=== PATIENT | female | born 1955 | race American Indian/Alaskan Native ===

== ENCOUNTER 2016-07-05 08:08 | Outpatient (CLI) | payer OTHER ==
[~2016-07-05 08:08] MED LIST: PROVENTIL IH ONE
== END 2016-07-05 08:09 | disposition home or self-care (01) ==
LOC: PF 08:08
PROVIDERS: ATTEND Internal Medicine
DX: E11.9 Type 2 diabetes mellitus without complications (principal); R56.9 Unspecified convulsions; G62.9 Polyneuropathy, unspecified; H54.7 Unspecified visual loss
CPT/HCPCS: 94060; 94640

== ENCOUNTER 2017-05-07 14:06 | Emergency (ER) | payer SELFPAY ==
[2017-05-07] MEDS ORDERED: NACL 0.9% 1000 ML 1,000 ML IV ONE (14:23)
[2017-05-07] MEDS ORDERED: ZOFRAN IV ONE (14:23)
[2017-05-07] MEDS ORDERED: MORPHINE IV ONE (14:23)
[2017-05-07] MEDS ORDERED: ZOFRAN ONE (14:26)
[2017-05-07] MEDS ORDERED: NACL 0.9% 1000 ML 1,000 ML ONE (14:27)
[2017-05-07] MEDS ORDERED: TYLENOL ONE (14:27)
[2017-05-07] MEDS ORDERED: MORPHINE ONE (14:28)
--- NOTE | 2017-05-07 14:29 | Emergency Department Report ---
ED Abdominal Pain HPI - General Stated Complaint: NAUSEA/EMESIS Time Seen by Provider: 05/07/17 14:19 - History of Present Illness Initial Comments: Patient is 62 years old female history of diabetes and hypertension. Presented to the ER with 1 day history of abdominal pain, diffuse, crampy in nature and associated with nausea vomiting and fever. No diarrhea. She denied any urinary symptoms. MD Complaint: abdominal pain -: This morning Location: diffuse Radiation: none Migration to: no migration Severity scale (0 -10): 6 Quality: cramping Associated Symptoms: nausea, vomiting, chills - Related Data Home Medications Medication Instructions Recorded Confirmed Last Taken No Known Home Medications [No 05/07/17 05/07/17 Unknown Reported Home Medications] Allergies Allergy/AdvReac Type Severity Reaction Status Date / Time ibuprofen [From Motrin] Allergy Itching Verified 02/03/16 20:11 ED Review of Systems ROS: Stated complaint: NAUSEA/EMESIS Other details as noted in HPI Comment: All other systems reviewed and negative Constitutional: chills, fever Respiratory: cough. denies: orthopnea, shortness of breath, SOB with exertion Cardiovascular: palpitations. denies: chest pain, dyspnea on exertion, orthopnea Gastrointestinal: abdominal pain, nausea, vomiting. denies: diarrhea, constipation, hematemesis, melena, hematochezia Genitourinary: denies: urgency, dysuria, frequency Skin: denies: rash Neurological: denies: headache, weakness, numbness, paresthesias ED Past Medical Hx - Past Medical History Hx Hypertension: Yes Hx Diabetes: Yes Additional medical history: ulcers? - Social History Smoking Status: Current Every Day Smoker Substance Use Type: None - Medications Home Medications: Home Medications Medication Instructions Recorded Confirmed Last Taken Type No Known Home Medications [No 05/07/17 05/07/17 Unknown History Reported Home Medications] ED Physical Exam - General General appearance: alert, in no apparent distress - Head Head exam: Present: atraumatic, normocephalic, normal inspection - Eye Eye exam: Present: normal appearance, PERRL - ENT ENT exam: Present: normal exam, normal orophraynx, mucous membranes moist - Neck Neck exam: Present: normal inspection, full ROM. Absent: tenderness, meningismus, lymphadenopathy - Respiratory Respiratory exam: Present: normal lung sounds bilaterally. Absent: respiratory distress, wheezes, rales, rhonchi, chest wall tenderness, accessory muscle use, decreased breath sounds, prolonged expiratory - Cardiovascular Cardiovascular Exam: Present: tachycardia, normal heart sounds - GI/Abdominal GI/Abdominal exam: Present: soft, tenderness (diffuse tenderness), normal bowel sounds. Absent: distended, guarding, rebound, rigid, organomegaly, mass, bruit , pulsatile mass, hernia - Extremities Exam Extremities exam: Present: normal inspection, full ROM, normal capillary refill - Back Exam Back exam: Present: normal inspection, full ROM. Absent: tenderness, CVA tenderness (R), CVA tenderness (L), muscle spasm, paraspinal tenderness, vertebral tenderness, rash noted - Neurological Exam Neurological exam: Present: alert, oriented X3, CN II-XII intact, normal gait - Skin Skin exam: Present: warm, intact, normal color. Absent: cyanosis, diaphoretic, erythema ED Course Vital Signs 05/07/17 05/07/17 14:57 15:01 Temperature 102.1 F H Pulse Rate 119 H Respiratory 20 22 Rate Blood Pressure 185/103 O2 Sat by Pulse 95 Oximetry - Reevaluation(s) Reevaluation #1: 05/07/17 17:15: Patient is still complaining of abdominal pain but no more vomiting. Fentanyl 50mcg prescribed. Reevaluation #2: 05/07/17 18:15 Patient stated that she is feeling much better. Her pain completely resolved. No nausea no vomiting. ED Medical Decision Making - Lab Data Result diagrams: 05/07/17 14:31 05/07/17 14:31 - Radiology Data Radiology results: report reviewed Referring Physician: TAI LUDWIG Patient Name: LICHA ENGLAND Date of : 1955 Sex: Female Report Date: 2017-05-07 Report Status: Finalized Findings [facility] [address] [place] [address] Cat Scan Report Signed Patient: LICHA ENGLAND MR#: [id number] : 1955 Acct:[id number] Age/Sex: 62 / F ADM Date: 05/07/17 Loc: ED Attending Dr: Ordering Physician: TAI LUDWIG Date of Service: 05/07/17 Procedure(s): CT abdomen pelvis w con Accession Number(s): [id number] cc: TAI LUDWIG FINAL REPORT PROCEDURE: CT ABDOMEN PELVIS W CON TECHNIQUE: Computerized axial tomography of the abdomen and pelvis was performed after the IV injection of iodinated nonionic contrast. HISTORY: abdominal pain, FEVER COMPARISON: No prior studies are available for comparison. FINDINGS: Visualized lower thorax: There is a small amount of pericardial fluid present, measuring 8 millimeters in thickness. Liver: Normal size and attenuation. Spleen: Normal size and attenuation. Gallbladder and biliary system: Normal. Pancreas: Normal. Adrenals: Normal. Kidneys: 2 centimeter right renal cyst is present. No hydronephrosis. GI tract: The appendix is visualized and is not inflamed. No bowel obstruction or acute inflammation is seen. Lymph nodes and mesentery: Normal. Vasculature: There is atherosclerotic calcification of the aorta and bilateral common iliac arteries. Bladder: The bladder is not fully distended, however there may be bladder wall thickening. Reproductive organs: Grossly unremarkable. Peritoneum: No free fluid. Musculoskeletal structures: There are lumbar spine degenerative disc and facet arthritic changes. Other: None. IMPRESSION: No acute inflammatory process is identified. Small pericardial effusion is seen as described above The urinary bladder is not fully distended, however there may be mild wall thickening. Correlate for possible cystitis Transcribed By: [facility] Dictated By: CRISTIAN VALDES M.D. Electronically Authenticated By: CRISTIAN VLADES M.D. Signed Date/Time: 05/07/17 1240 DD/ 1240 TD/TT: 05/07/17 1240 Critical care attestation.: If time is entered above; I have spent that time in minutes in the direct care of this critically ill patient, excluding procedure time. ED Disposition Clinical Impression: Abdominal pain, Fever, Cystitis, Hyperglycemia Disposition: -01 TO HOME OR SELFCARE Is pt being admited?: No Condition: Stable Instructions: Abdominal Pain (ED), Diabetic Hyperglycemia (ED), Urinary Tract Infection in Women (ED) Referrals: PRIMARY CARE, [Referring] - 3-5 Days
[2017-05-07 14:57] LABS: Bilirubin,Urine NEG (Negative); Blood,Urine SM (Negative); Color,Urine Yellow (Yellow); Mucus,Urine FEW /HPF; Nitrite,Urine NEG (Negative); Protein,Urine <15 mg/dL mg/dL (Negative); Urobilinogen,Urine < 2.0 mg/dL (<2.0)
[2017-05-07 15:04] LABS: Basophils % (Auto) 0.9 % (0.0-1.8); Eosinophils % (Auto) 0.4 % (0.0-4.3); Hemoglobin 14.4 gm/dl (10.1-14.3); Lymphocytes # (Auto) 0.3 K/mm3 (1.2-5.4); Lymphocytes % (Auto) 5.6 % (13.4-35.0); Mean Corpuscular HGB Conc 32 % (30-34); Mean Corpuscular Hemoglobin 25 pg (28-32); Mean Corpuscular Volume 78 fl (79-97); Monocytes # (Auto) 0.4 K/mm3 (0.0-0.8); Platelet Count 234 K/mm3 (140-440); Red Blood Count 5.79 M/mm3 (3.65-5.03); Red Cell Distribution Width 16.1 % (13.2-15.2)
[2017-05-07 15:20] LABS: Alanine Aminotransferase 11 units/L (7-56); Albumin 2.4 g/dL (3.9-5); BUN/Creatinine Ratio 15; Blood Urea Nitrogen 12 mg/dL (7-17); Calcium 8.4 mg/dL (8.4-10.2); Hemolysis Index 28; Lipase 8 units/L (13-60)
[2017-05-07 15:21] LABS: Bilirubin,Direct < 0.2 mg/dL (0-0.2)
--- NOTE | 2017-05-07 16:43 | Cat Scan Report ---
FINAL REPORT PROCEDURE: CT ABDOMEN PELVIS W CON TECHNIQUE: Computerized axial tomography of the abdomen and pelvis was performed after the IV injection of iodinated nonionic contrast. HISTORY: abdominal pain, FEVER COMPARISON: No prior studies are available for comparison. FINDINGS: Visualized lower thorax: There is a small amount of pericardial fluid present, measuring 8 millimeters in thickness. Liver: Normal size and attenuation. Spleen: Normal size and attenuation. Gallbladder and biliary system: Normal. Pancreas: Normal. Adrenals: Normal. Kidneys: 2 centimeter right renal cyst is present. No hydronephrosis. GI tract: The appendix is visualized and is not inflamed. No bowel obstruction or acute inflammation is seen. Lymph nodes and mesentery: Normal. Vasculature: There is atherosclerotic calcification of the aorta and bilateral common iliac arteries. Bladder: The bladder is not fully distended, however there may be bladder wall thickening. Reproductive organs: Grossly unremarkable. Peritoneum: No free fluid. Musculoskeletal structures: There are lumbar spine degenerative disc and facet arthritic changes. Other: None. IMPRESSION: No acute inflammatory process is identified. Small pericardial effusion is seen as described above The urinary bladder is not fully distended, however there may be mild wall thickening. Correlate for possible cystitis
[2017-05-07] MEDS ORDERED: SUBLIMAZE IV ONE (17:08)
[2017-05-07] MEDS ORDERED: ZOSYN/NS 3.375GM/50ML 3.375 GM/50 ML BAG IV SCH (18:30)
[2017-05-07 19:35] VITALS: BP 124/75
== END 2017-05-07 19:41 | disposition home or self-care (01) ==
LOC: ED 14:06
DX: N30.90 Cystitis, unspecified without hematuria (principal); E11.65 Type 2 diabetes mellitus with hyperglycemia; R10.84 Generalized abdominal pain; R50.9 Fever, unspecified; I10 Essential (primary) hypertension; F17.200 Nicotine dependence, unspecified, uncomplicated
CPT/HCPCS: 36415; 74177; 80048; 80074; 81001; 82962; 83690; 85025; 87040; 96361; 96365; 96375; 99284; J2270; J2405; J3010; J7030; Q9967; J1815; J2543

== ENCOUNTER 2017-07-30 07:57 | Inpatient (IN) | payer OTHER ==
[2017-07-30 08:44] LABS: Basophils % (Auto) 0.6 % (0.0-1.8); Eosinophils # (Auto) 0.1 K/mm3 (0.0-0.4); Eosinophils % (Auto) 1.2 % (0.0-4.3); Hematocrit 32.6 % (30.3-42.9); Hemoglobin 10.3 gm/dl (10.1-14.3); Lymphocytes # (Auto) 1.6 K/mm3 (1.2-5.4); Lymphocytes % (Auto) 22.8 % (13.4-35.0); Mean Corpuscular HGB Conc 32 % (30-34); Mean Corpuscular Volume 76 fl (79-97); Monocytes # (Auto) 0.4 K/mm3 (0.0-0.8); Monocytes % (Auto) 5.9 % (0.0-7.3); Platelet Count 525 K/mm3 (140-440); Red Blood Count 4.27 M/mm3 (3.65-5.03); Red Cell Distribution Width 15.7 % (13.2-15.2)
[2017-07-30 08:45] LABS: Mean Corpuscular Hemoglobin 24 pg (28-32)
[2017-07-30 08:55] LABS: BUN/Creatinine Ratio 20; Blood Urea Nitrogen 12 mg/dL (7-17); Calcium 8.6 mg/dL (8.4-10.2); Hemolysis Index 18
--- NOTE | 2017-07-30 09:30 | XRay Report ---
CHEST TWO VIEWS: 07/30/17 09:06 CLINICAL: Shortness of breath. COMPARISON: none FINDINGS: Mild cardiomegaly and central vascular congestion with redistribution of pulmonary blood flow to the upper lobes. Mild bibasal and right upper lobe reticular interstitial opacities. Patchy opacity at the right costophrenic angle and blunting of both costophrenic angles. No tubes or lines. IMPRESSION: CHF with mild interstitial pulmonary edema. Suspect tiny right pleural effusion.
[2017-07-30] MEDS ORDERED: LASIX IV ONE ×2 (09:49→14:00)
--- NOTE | 2017-07-30 12:13 | Emergency Department Report ---
ED Shortness of Breath HPI - General Chief Complaint: Dyspnea/Respdistress Stated Complaint: RL Time Seen by Provider: 07/30/17 09:20 Source: patient, EMS Mode of arrival: Stretcher Limitations: No Limitations - History of Present Illness Initial Comments: Mrs. Brock is a 62-year-old female with history of hypertension diabetes who presents with 1 month of shortness of breath with nonproductive cough. She states she has had wheezing. She denied fever. She has chills and body aches. Feels like previous episode pneumonia. She was given albuterol solu-medrol per EMS. Patient was hypoxic per EMS I percent on room air. The patient does smoke tobacco. She stated that she possibly had a slight heart attack years ago. No history of cardiac intervention. She denies leg pain. She denies back pain. She has chest tightness as if she cannot get in a deep breath. She does not use bronchodilator therapy. However she is using her grandson's nebulizer daily. MD Complaint: shortness of breath, cough -: week(s) (1) Severity: moderate Known History Of: recurrent pnemonia - Related Data Previous Rx's Medication Instructions Recorded Last Taken Type Ciprofloxacin HCl [Ciprofloxacin 500 mg PO Q12H #14 tab 05/07/17 Unknown Rx TAB] HYDROcodone/APAP 5-325 [[place] 1 each PO Q6HR PRN #14 tablet 05/07/17 Unknown Rx 5/325] Ondansetron [Zofran Odt] 4 mg PO Q8HR PRN #14 tab.rapdis 05/07/17 Unknown Rx Allergies Allergy/AdvReac Type Severity Reaction Status Date / Time ibuprofen [From Motrin] Allergy Itching Verified 02/03/16 20:11 ED Review of Systems ROS: Stated complaint: RL Other details as noted in HPI Comment: All other systems reviewed and negative Constitutional: chills, fever, malaise Respiratory: cough ED Past Medical Hx - Past Medical History Previous Medical History?: Yes Hx Hypertension: Yes Hx Heart Attack/AMI: Yes Hx Diabetes: Yes Additional medical history: ulcers? - Surgical History Past Surgical History?: Yes Additional Surgical History: tubal ligation - Social History Smoking Status: Former Smoker Substance Use Type: None - Medications Home Medications: Home Medications Medication Instructions Recorded Confirmed Last Taken Type Ciprofloxacin HCl [Ciprofloxacin 500 mg PO Q12H #14 tab 05/07/17 Unknown Rx TAB] HYDROcodone/APAP 5-325 [[place] 1 each PO Q6HR PRN #14 tablet 05/07/17 Unknown Rx 5/325] Ondansetron [Zofran Odt] 4 mg PO Q8HR PRN #14 tab.rapdis 05/07/17 Unknown Rx ED Physical Exam - General Limitations: No Limitations General appearance: alert, other (mild respiratory distress speaking full sentences) - Head Head exam: Present: atraumatic, normocephalic - Eye Eye exam: Present: normal appearance - ENT ENT exam: Present: normal orophraynx, mucous membranes moist - Neck Neck exam: Present: normal inspection - Respiratory Respiratory exam: Present: respiratory distress, rales, rhonchi, other ( decreased breath sounds) - Cardiovascular Cardiovascular Exam: Present: normal rhythm, tachycardia, normal heart sounds. Absent: systolic murmur, diastolic murmur, rubs, gallop - GI/Abdominal GI/Abdominal exam: Present: soft, normal bowel sounds. Absent: distended, tenderness, guarding, rebound - Extremities Exam Extremities exam: Present: normal inspection - Back Exam Back exam: Present: normal inspection - Neurological Exam Neurological exam: Present: alert, oriented X3 - Psychiatric Psychiatric exam: Present: normal affect, normal mood - Skin Skin exam: Present: warm, dry, intact, normal color. Absent: rash ED Course Vital Signs 07/30/17 07/30/17 07/30/17 08:09 08:16 08:17 Temperature 98.9 F Pulse Rate 111 H Respiratory 18 Rate Blood Pressure 180/97 180/97 O2 Sat by Pulse 94 90 93 Oximetry 07/30/17 07/30/17 07/30/17 08:48 09:00 09:16 Temperature Pulse Rate 109 H 104 H 101 H Respiratory 23 13 24 Rate Blood Pressure 180/97 172/100 172/100 O2 Sat by Pulse 93 92 88 Oximetry 07/30/17 07/30/17 07/30/17 09:30 09:46 10:00 Temperature Pulse Rate 100 H 99 H 98 H Respiratory 21 19 23 Rate Blood Pressure 172/100 172/100 162/88 O2 Sat by Pulse 83 L 89 87 Oximetry 07/30/17 07/30/17 07/30/17 10:16 10:30 10:46 Temperature Pulse Rate 107 H 98 H 105 H Respiratory 22 21 18 Rate Blood Pressure 162/88 162/88 162/88 O2 Sat by Pulse 87 85 86 Oximetry ED Medical Decision Making - Lab Data Result diagrams: 07/30/17 08:26 07/30/17 08:26 Laboratory Results - last 24 hr 07/30/17 07/30/17 07/30/17 08:26 08:26 08:26 WBC 6.9 RBC 4.27 Hgb 10.3 Hct 32.6 MCV 76 L MCH 24 L MCHC 32 RDW 15.7 H Plt Count 525 H Lymph % (Auto) 22.8 [place] % (Auto) 5.9 Eos % (Auto) 1.2 Baso % (Auto) 0.6 Lymph # 1.6 [place] # 0.4 Eos # 0.1 Baso # 0.0 Seg Neutrophils % 69.5 Seg Neutrophils # 4.8 Sodium 148 H Potassium 4.2 Chloride 105.2 Carbon Dioxide 31 H Anion Gap 16 BUN 12 Creatinine 0.6 L Estimated GFR > 60 BUN/Creatinine Ratio 20 Glucose 132 H Calcium 8.6 Troponin T < 0.010 NT-Pro-B Natriuret Pep 3835 H Vital Signs - 24 hr 07/30/17 07/30/17 07/30/17 08:09 08:16 08:17 Temperature 98.9 F Pulse Rate 111 H Respiratory 18 Rate Blood Pressure 180/97 180/97 O2 Sat by Pulse 94 90 93 Oximetry 07/30/17 07/30/17 07/30/17 08:48 09:00 09:16 Temperature Pulse Rate 109 H 104 H 101 H Respiratory 23 13 24 Rate Blood Pressure 180/97 172/100 172/100 O2 Sat by Pulse 93 92 88 Oximetry 07/30/17 07/30/17 07/30/17 09:30 09:46 10:00 Temperature Pulse Rate 100 H 99 H 98 H Respiratory 21 19 23 Rate Blood Pressure 172/100 172/100 162/88 O2 Sat by Pulse 83 L 89 87 Oximetry 07/30/17 07/30/17 07/30/17 10:16 10:30 10:46 Temperature Pulse Rate 107 H 98 H 105 H Respiratory 22 21 18 Rate Blood Pressure 162/88 162/88 162/88 O2 Sat by Pulse 87 85 86 Oximetry - Radiology Data Radiology results: report reviewed - Medical Decision Making Mrs. brock presents with acute respiratory failure. Evidence of new onset CHF with pulmonary edema on x-ray and elevated BNP. A likely component of bronchospasm with tobacco abuse history. Admitted to the hospital service for further evaluation. IV furosemide initiated in the ED. Critical care attestation.: If time is entered above; I have spent that time in minutes in the direct care of this critically ill patient, excluding procedure time. ED Disposition Clinical Impression: Acute respiratory failure with hypoxia, CHF (congestive heart failure) Disposition: OP ADMIT IP TO THIS HOSP Is pt being admited?: Yes Does the pt Need Aspirin: No Condition: Stable Time of Disposition: 12:16
--- NOTE | 2017-07-30 12:39 | History and Physical Report ---
History of Present Illness Chief complaint: Im short of breath History of present illness: 62 YO Female with HTN, DM, MA, PUD, Nicotine Dependence, Medication Noncompliance presents to ED for evaluation. Pt states that she has experienced shortness of breath for the past 1 month, with worsening symptoms over the past week. Pt acknowledges decreased exercise tolerance, Orthopnea/PND. Pt denies fever, chills, CP, Palpitations, NVD, Syncope, BRBPR, Productive cough, prolonged travel/immobility, individual/family history of DVT/PE, calf pain, trauma, or recent ill contacts. Pt seen and evaluated in ED and found to have Acute CHF with concomitant Acute Hypoxemic respiratory failure. Pt desaturates to an oxygen saturation of 82-86% on room air even after diuretic therapy. Pt admitted to telemetry. Past History Past Medical History: acute MA, diabetes, hypertension, other (PUD, ) Past Surgical History: Other (Tubal ligation. ) Social history: , smoking. denies: alcohol abuse, prescription drug abuse Family history: diabetes, hypertension Medications and Allergies Allergies Allergy/AdvReac Type Severity Reaction Status Date / Time ibuprofen [From Motrin] Allergy Itching Verified 02/03/16 20:11 Home Medications Medication Instructions Recorded Confirmed Last Taken Type Ciprofloxacin HCl [Ciprofloxacin 500 mg PO Q12H #14 tab 05/07/17 Unknown Rx TAB] HYDROcodone/APAP 5-325 [[place] 1 each PO Q6HR PRN #14 tablet 05/07/17 Unknown Rx 5/325] Ondansetron [Zofran Odt] 4 mg PO Q8HR PRN #14 tab.rapdis 05/07/17 Unknown Rx Furosemide [Lasix] 20 mg PO QDAY #30 tablet 07/30/17 Unknown Rx Lisinopril 20 mg PO DAILY #30 tablet 07/30/17 Unknown Rx Metoprolol [Lopressor TAB] 25 mg PO BID #60 tablet 07/30/17 Unknown Rx Review of Systems Constitutional: no weight loss, no weight gain, no fever, no chills Ears, nose, mouth and throat: no ear pain, no ear discharge, no tinnitis, no decreased hearing, no nose pain, no nasal congestion Cardiovascular: orthopnea, shortness of breath, paroxysmal nocturnal dyspnea, decreased exercise tolerance, no chest pain, no palpitations, no rapid/ irregular heart beat, no syncope Respiratory: no cough, no cough with sputum, no excessive sputum Gastrointestinal: no nausea, no vomiting, no diarrhea, no constipation Genitourinary Female: no pelvic pain, no flank pain, no menorrhagia, no dysuria , no urinary frequency, no urgency Rectal: no pain, no incontinence, no bleeding Musculoskeletal: no neck stiffness, no neck pain, no shooting arm pain, no arm numbness/tingling, no low back pain, no shooting leg pain, no leg numbness/ tingling Integumentary: no rash, no pruritis, no redness, no sores, no wounds, no jaundice, no boils Neurological: no transient paralysis, no paralysis, no weakness, no parathesias , no numbness, no tingling, no seizures, no syncope, no tremors Psychiatric: no anxiety, no memory loss, no change in sleep habits, no sleep disturbances, no insomnia, no hypersomnia, no change in appetite, no change in libido, no suicidal ideation Endocrine: no cold intolerance, no heat intolerance, no polyphagia, no excessive thirst, no polydipsia, no polyuria, no nocturia, no excessive sweating Hematologic/Lymphatic: no easy bruising, no lymphadenopathy, no lymphedema Allergic/Immunologic: no urticaria, no allergic rhinitis, no wheezing, no persistent infections, no anaphylaxis Exam - Constitutional Vitals: Temp Pulse Resp BP Pulse Ox 98.9 F 105 H 18 162/88 86 07/30/17 08:17 07/30/17 10:46 07/30/17 10:46 07/30/17 10:46 07/30/17 10:46 General appearance: Present: mild distress - EENT Eyes: Present: PERRL ENT: hearing intact, clear oral mucosa - Neck Neck: Present: supple, normal ROM - Respiratory Respiratory effort: normal Respiratory: bilateral: rhonchi - Cardiovascular Heart Sounds: Present: S1 & S2. Absent: rub, click - Extremities Extremities: pulses symmetrical, No edema Extremity abnormal: edema Peripheral Pulses: within normal limits - Abdominal General gastrointestinal: Present: soft, non-tender, non-distended, normal bowel sounds Female genitourinary: Present: normal - Integumentary Integumentary: Present: clear, warm, dry - Musculoskeletal Musculoskeletal: generalized weakness - Psychiatric Psychiatric: appropriate mood/affect, intact judgment & insight - Neurologic Neurologic: CNII-XII intact, moves all extremities Results - Labs CBC & Chem 7: 07/30/17 08:26 07/30/17 08:26 Labs: Abnormal lab results 07/30/17 07/30/17 07/30/17 Range/Units 08:26 08:26 08:26 MCV 76 L (79-97) fl MCH 24 L (28-32) pg RDW 15.7 H (13.2-15.2) % Plt Count 525 H (140-440) K/mm3 Sodium 148 H (137-145) mmol/L Carbon Dioxide 31 H (22-30) mmol/L Creatinine 0.6 L (0.7-1.2) mg/dL Glucose 132 H (65-100) mg/dL NT-Pro-B Natriuret Pep 3835 H (0-900) pg/mL Assessment and Plan - Patient Problems (1) CHF (congestive heart failure) Current Visit: Yes Status: Acute Qualifiers: Heart failure type: systolic Heart failure chronicity: acute Qualified Code(s): I50.21 - Acute systolic (congestive) heart failure Plan to address problem: Admit to telemetry, Echo, Strict I/O, Afterload reduction, B tram therapy, diuresis, monitor uop q shift, daily weight, 2 gram sodium diet, Pt counseled regarding medication noncompliance. Pt acknowledges understanding instructions. (2) Acute respiratory failure with hypoxia Current Visit: Yes Status: Acute Plan to address problem: Supplemental oxygen, nebulizer therapy, incentive spirometry, early ambulation, NIPPV an clinically indicated, home oxygen evaluation in AM. (3) Metabolic acidosis Current Visit: Yes Status: Acute Plan to address problem: repeat bmp, suportive care. (4) Diabetes Current Visit: Yes Status: Acute Plan to address problem: consistent carbohydrate diet, insulin accu check, HGb a1c (5) HTN (hypertension) Current Visit: Yes Status: Acute Qualifiers: Hypertension type: essential hypertension Qualified Code(s): I10 - Essential (primary) hypertension Plan to address problem: monitor bp q shift, continue current therapy.. (6) DVT prophylaxis Current Visit: Yes Status: Acute
--- NOTE | 2017-07-30 13:18 | Cat Scan Report ---
CT CHEST WITH CONTRAST: 07/30/17 CLINICAL: Dyspnea. TECHNIQUE: PE protocol with volumetric acquisition and 1.25 mm scan reconstructions after the uneventful intravenous injection of 100 cc Omnipaque 350. Consent was obtained prior to the administration of contrast. FINDINGS: Good opacification of the pulmonary arteries and no pulmonary artery thrombus identified. Mild cardiomegaly and mild coronary artery calcifications. Mild bilateral lower lobe subsegmental atelectasis and small bilateral pleural effusions. Normal thyroid, trachea and esophagus. The upper abdomen is unremarkable for a benign 2.4 cm right renal cyst.. The bones and soft tissues are normal. IMPRESSION: No pulmonary embolus. Small bilateral pleural effusions. No pneumonia.
[2017-07-30] MEDS ORDERED: LOPRESSOR PO ONE (14:00)
[2017-07-30] MEDS ORDERED: ZESTRIL PO ONE (14:00)
[2017-07-30] MEDS ORDERED: APRESOLINE IV ONE ×2 (17:00→17:25)
[2017-07-30] MEDS ORDERED: HumuLIN R IV ONE (18:09)
[2017-07-30] MEDS ORDERED: D50W (25GM) Syringe IV PRN ×2 (20:19→20:22)
[2017-07-30] MEDS ORDERED: TYLENOL PO PRN (20:19)
[2017-07-30] MEDS ORDERED: PROVENTIL IH PRN (20:19)
[2017-07-30] MEDS ORDERED: SODIUM CHLORIDE FLUSH SYRINGE 10 ML IV PRN (20:19)
[2017-07-30] MEDS ORDERED: ZOFRAN IV PRN (20:19)
[2017-07-30 21:43] LABS: Chol/HDL Ratio 3.1 %
[2017-07-31] MEDS: PERCOCET 5/325 PO PRN ×3 (00:25→22:49)
[2017-07-31] MEDS: LOPRESSOR PO SCH ×3 (00:25→22:40)
[2017-07-31] MEDS: NEURONTIN PO SCH ×4 (00:25→23:40)
[2017-07-31] MEDS: HumuLIN R SUB-Q SCH ×6 (00:33→22:42)
[2017-07-31] MEDS: LASIX IV SCH ×2 (06:55→18:48)
[2017-07-31] MEDS: SODIUM CHLORIDE FLUSH SYRINGE 10 ML IV SCH ×3 (07:28→22:41)
[2017-07-31] MEDS: ZESTRIL PO SCH (09:25)
[2017-07-31] MEDS: HALFPRIN EC PO SCH (12:52)
--- NOTE | 2017-07-31 13:18 | Progress Note ---
Assessment and Plan / Acute CHF (congestive heart failure) exacerbation monitor at telemetry, follow Echo, Strict I/O, Afterload reduction, B tram therapy, diuresis, monitor uop q shift, daily weight, 2 gram sodium diet, Pt counseled regarding medication noncompliance. Pt acknowledges understanding instructions. /Acute respiratory failure with hypoxia Current Visit: Yes Status: Acute Plan to address problem: Supplemental oxygen, nebulizer therapy, incentive spirometry, early ambulation, NIPPV an clinically indicated, likely from CHF exacerbation / Diabetes type 2 on insulin consistent carbohydrate diet, insulin accu check, HGb a1c 13.3 / HTN (hypertension) monitor bp q shift, continue current therapy.. / DVT prophylaxis lovenox Brief history: 62 YO Female with HTN, DM, [place], PUD, Nicotine Dependence, Medication Noncompliance presents to ED for shortness of breath for the past 1 month, with worsening symptoms over the past week. Pt seen and evaluated in ED and found to have Acute CHF with concomitant Acute Hypoxemic respiratory failure. Pt desaturated to an oxygen saturation of 82-86% on room air even after diuretic therapy. Pt admitted to telemetry. Subjective Date of service: 07/31/17 Interval history: Pt seen and examined c/o SOB on minimal exertion, denies chest pain Objective - Constitutional Vitals: Vital Signs - 12hr 07/31/17 07/31/17 06:08 08:05 Temperature 98.2 F 97.7 F Pulse Rate 79 78 Respiratory 20 18 Rate Blood Pressure 147/85 143/83 O2 Sat by Pulse 98 100 Oximetry General appearance: Present: no acute distress - EENT Eyes: PERRL, EOM intact ENT: hearing intact, clear oral mucosa Ears: bilateral: normal - Neck Neck: supple, normal ROM - Respiratory Respiratory effort: normal Respiratory: bilateral: rales - Cardiovascular Rhythm: regular Heart Sounds: Present: S1 & S2. Absent: gallop, rub Extremities: pulses intact, normal color, Full ROM Extremity abnormal: edema (trace) - Gastrointestinal General gastrointestinal: Present: soft, non-tender, non-distended, normal bowel sounds - Genitourinary Female genitourinary: normal - Integumentary Integumentary: clear, warm, dry - Musculoskeletal Musculoskeletal: 1, strength equal bilaterally - Neurologic Neurologic: moves all extremities - Psychiatric Psychiatric: memory intact, appropriate mood/affect, intact judgment & insight - Labs CBC & Chem 7: 08/01/17 04:32 08/01/17 04:32 Labs: Abnormal lab results 07/30/17 07/30/17 07/30/17 Range/Units 08:26 13:21 18:10 POC Glucose 176 H 399 H (70-105) Hemoglobin A1c 13.3 H (4-6) % 07/30/17 07/31/17 07/31/17 Range/Units 20:29 00:33 06:58 POC Glucose 307 H 303 H 162 H (70-105) Hemoglobin A1c (4-6) % 07/31/17 Range/Units 11:41 POC Glucose 248 H (70-105) Hemoglobin A1c (4-6) %
[2017-07-31] MEDS: ZOLOFT PO SCH (14:28)
[2017-07-31] MEDS: PROCARDIA XL PO SCH (14:32)
[2017-07-31] MEDS ORDERED: LEVEMIR 15 UNIT SUB-Q SCH (22:00)
[2017-07-31] MEDS: LANTUS SUB-Q SCH (22:40)
[2017-08-01 05:18] LABS: Basophils % (Auto) 0.6 % (0.0-1.8); Eosinophils # (Auto) 0.1 K/mm3 (0.0-0.4); Eosinophils % (Auto) 1.5 % (0.0-4.3); Hematocrit 30.2 % (30.3-42.9); Hemoglobin 9.9 gm/dl (10.1-14.3); Lymphocytes # (Auto) 2.5 K/mm3 (1.2-5.4); Lymphocytes % (Auto) 31.6 % (13.4-35.0); Mean Corpuscular HGB Conc 33 % (30-34); Mean Corpuscular Volume 76 fl (79-97); Monocytes # (Auto) 0.5 K/mm3 (0.0-0.8); Monocytes % (Auto) 6.5 % (0.0-7.3); Platelet Count 426 K/mm3 (140-440); Red Blood Count 3.99 M/mm3 (3.65-5.03); Red Cell Distribution Width 15.5 % (13.2-15.2)
[2017-08-01 05:19] LABS: Mean Corpuscular Hemoglobin 25 pg (28-32)
[2017-08-01 05:27] LABS: BUN/Creatinine Ratio 26; Blood Urea Nitrogen 21 mg/dL (7-17); Calcium 7.8 mg/dL (8.4-10.2); Hemolysis Index 14
[2017-08-01] MEDS: LASIX IV SCH ×2 (06:24→18:10)
[2017-08-01] MEDS: NEURONTIN PO SCH ×4 (08:35→22:30)
[2017-08-01] MEDS: HumuLIN R SUB-Q SCH ×4 (08:36→22:30)
[2017-08-01] MEDS: ZESTRIL PO SCH ×2 (08:37→11:03)
[2017-08-01] MEDS: ZOLOFT PO SCH ×2 (08:37→11:03)
[2017-08-01] MEDS: PROCARDIA XL PO SCH ×2 (08:37→11:02)
[2017-08-01] MEDS: LOPRESSOR PO SCH ×3 (08:37→22:30)
[2017-08-01] MEDS: HALFPRIN EC PO SCH ×2 (08:38→11:01)
[2017-08-01] MEDS: LANTUS SUB-Q SCH ×2 (08:46→11:01)
[2017-08-01] MEDS: SODIUM CHLORIDE FLUSH SYRINGE 10 ML IV SCH ×2 (10:27→22:31)
[2017-08-01] MEDS ORDERED: LANTUS SUB-Q SCH (13:03)
--- NOTE | 2017-08-01 14:26 | Progress Note ---
Assessment and Plan / Acute CHF (congestive heart failure) exacerbation monitor at telemetry, Strict I/O, Afterload reduction, B tram therapy, diuresis, monitor uop q shift, daily weight, 2 gram sodium diet, Pt counseled regarding medication noncompliance. Pt acknowledges understanding instructions. 2d echo showed EF of 40-45 % /Acute respiratory failure with hypoxia Current Visit: Yes Status: Acute Plan to address problem: Supplemental oxygen, nebulizer therapy, incentive spirometry, early ambulation, NIPPV an clinically indicated, likely from CHF exacerbation / Diabetes type 2 on insulin cont consistent carbohydrate diet, insulin with accu check, HGb a1c 13.3 / HTN (hypertension) monitor bp q shift, continue current therapy.. / DVT prophylaxis lovenox Disposition: home when clinically improves Brief history: 62 YO Female with HTN, DM, [place], PUD, Nicotine Dependence, Medication Noncompliance presents to ED for shortness of breath for the past 1 month, with worsening symptoms over the past week. Pt seen and evaluated in ED and found to have Acute CHF with concomitant Acute Hypoxemic respiratory failure. Pt desaturated to an oxygen saturation of 82-86% on room air even after diuretic therapy. Pt admitted to telemetry. Physical Exam: General appearance: Present: no acute distress - EENT Eyes: PERRL, EOM intact ENT: hearing intact, clear oral mucosa Ears: bilateral: normal - Neck Neck: supple, normal ROM - Respiratory Respiratory effort: normal Respiratory: bilateral: rales - Cardiovascular Rhythm: regular Heart Sounds: Present: S1 & S2. Absent: gallop, rub Extremities: pulses intact, normal color, Full ROM Extremity abnormal: edema (trace) - Gastrointestinal General gastrointestinal: Present: soft, non-tender, non-distended, normal bowel sounds - Genitourinary Female genitourinary: normal - Integumentary Integumentary: clear, warm, dry - Musculoskeletal Musculoskeletal: 1, strength equal bilaterally - Neurologic Neurologic: moves all extremities - Psychiatric Psychiatric: memory intact, appropriate mood/affect, intact judgment & insight Subjective Date of service: 08/01/17 Interval history: Pt seen and examined c/o SOB on exertion, denies chest pain tolerating diet Objective - Constitutional Vitals: Vital Signs - 12hr 08/01/17 08/01/17 08/01/17 04:31 07:54 10:00 Temperature 97.5 F L 97.8 F Pulse Rate 76 Respiratory 18 18 Rate Blood Pressure 134/78 146/83 O2 Sat by Pulse 96 96 Oximetry 08/01/17 11:06 Temperature 98.0 F Pulse Rate Respiratory 18 Rate Blood Pressure 136/83 O2 Sat by Pulse Oximetry - Labs CBC & Chem 7: 08/01/17 04:32 08/01/17 04:32 Labs: Abnormal lab results 07/31/17 07/31/17 08/01/17 Range/Units 17:09 21:55 04:32 Hgb 9.9 L (10.1-14.3) gm/dl Hct 30.2 L (30.3-42.9) % MCV 76 L (79-97) fl MCH 25 L (28-32) pg RDW 15.5 H (13.2-15.2) % Carbon Dioxide (22-30) mmol/L BUN (7-17) mg/dL Glucose (65-100) mg/dL POC Glucose 214 H 238 H (70-105) Calcium (8.4-10.2) mg/dL 08/01/17 08/01/17 08/01/17 Range/Units 04:32 06:27 11:11 Hgb (10.1-14.3) gm/dl Hct (30.3-42.9) % MCV (79-97) fl MCH (28-32) pg RDW (13.2-15.2) % Carbon Dioxide 31 H (22-30) mmol/L BUN 21 H (7-17) mg/dL Glucose 123 H (65-100) mg/dL POC Glucose 163 H 202 H (70-105) Calcium 7.8 L (8.4-10.2) mg/dL
[2017-08-01] MEDS: BENADRYL PO PRN (16:46)
[2017-08-02] MEDS: BENADRYL PO PRN (01:01)
[2017-08-02] MEDS: LASIX IV SCH ×2 (05:36→17:28)
[2017-08-02] MEDS: HumuLIN R SUB-Q SCH ×4 (08:16→23:31)
[2017-08-02] MEDS: ZESTRIL PO SCH (09:47)
[2017-08-02] MEDS: NEURONTIN PO SCH ×2 (09:47→21:38)
[2017-08-02] MEDS: ZOLOFT PO SCH (09:47)
[2017-08-02] MEDS: PROCARDIA XL PO SCH (09:48)
[2017-08-02] MEDS: LOPRESSOR PO SCH ×2 (09:48→21:38)
[2017-08-02] MEDS: HALFPRIN EC PO SCH (09:48)
[2017-08-02] MEDS: PERCOCET 5/325 PO PRN ×2 (09:52→21:42)
[2017-08-02] MEDS: SODIUM CHLORIDE FLUSH SYRINGE 10 ML IV SCH ×2 (12:33→21:39)
[2017-08-02] MEDS: LANTUS SUB-Q SCH ×2 (12:34→21:38)
[2017-08-02] MEDS ORDERED: ACD-A 500 ML IV ONE (13:01)
--- NOTE | 2017-08-02 15:07 | Progress Note ---
<DOMINICK SLATER - Last Filed: 08/02/17 15:15> Assessment and Plan Assessment and plan: 62 YO Female with HTN, DM, [place], PUD, Nicotine Dependence, Medication Noncompliance presents to ED for shortness of breath for the past 1 month, with worsening symptoms over the past week Acute CHF (congestive heart failure) exacerbation monitor at telemetry, Strict I/O, Afterload reduction, B tram therapy, diuresis, monitor uop q shift, daily weight, 2 gram sodium diet, Pt counseled regarding medication noncompliance. Pt acknowledges understanding instructions. 2d echo showed EF of 40-45 % Acute respiratory failure with hypoxia Supplemental oxygen, nebulizer therapy, incentive spirometry, early ambulation, NIPPV an clinically indicated, likely from CHF exacerbation Diabetes type 2 on insulin cont consistent carbohydrate diet, insulin with accu check, insulin dosage changes as pt was hypoglycemic today, will continue to monitor HGb a1c 13.3 Hypoglycemia Insulin dosage changed, will continue to monitor HTN (hypertension) monitor bp q shift, Lisinopril increased to 20mg daily DVT prophylaxis lovenox History Interval history: Patient seen and examined. No new issues overnight. Chart notes, labs and nursing notes reviewed. Hospitalist Physical - Constitutional Vitals: Temp Pulse Resp BP Pulse Ox 97.8 F 78 18 158/86 96 08/02/17 12:42 08/02/17 12:42 08/02/17 12:42 08/02/17 12:42 08/02/17 12:42 General appearance: Present: no acute distress, well-nourished - EENT Eyes: Present: PERRL, EOM intact ENT: hearing intact, clear oral mucosa - Neck Neck: Present: supple, normal ROM - Respiratory Respiratory effort: normal Respiratory: bilateral: CTA - Cardiovascular Rhythm: regular Heart Sounds: Present: S1 & S2 - Extremities Extremities: no ischemia, No edema - Abdominal General gastrointestinal: soft, non-tender, non-distended - Integumentary Integumentary: Present: clear, warm, dry - Psychiatric Psychiatric: appropriate mood/affect, intact judgment & insight, cooperative - Neurologic Neurologic: CNII-XII intact, moves all extremities - Allied Health Allied health notes reviewed: nursing Results - Labs CBC & Chem 7: 08/01/17 04:32 08/01/17 04:32 Labs: Laboratory Last Values WBC 7.8 K/mm3 (4.5-11.0) 08/01/17 04:32 RBC 3.99 M/mm3 (3.65-5.03) 08/01/17 04:32 Hgb 9.9 gm/dl (10.1-14.3) L 08/01/17 04:32 Hct 30.2 % (30.3-42.9) L 08/01/17 04:32 MCV 76 fl (79-97) L 08/01/17 04:32 MCH 25 pg (28-32) L 08/01/17 04:32 MCHC 33 % (30-34) 08/01/17 04:32 RDW 15.5 % (13.2-15.2) H 08/01/17 04:32 Plt Count 426 K/mm3 (140-440) 08/01/17 04:32 Lymph % (Auto) 31.6 % (13.4-35.0) 08/01/17 04:32 [place] % (Auto) 6.5 % (0.0-7.3) 08/01/17 04:32 Eos % (Auto) 1.5 % (0.0-4.3) 08/01/17 04:32 Baso % (Auto) 0.6 % (0.0-1.8) 08/01/17 04:32 Lymph # 2.5 K/mm3 (1.2-5.4) 08/01/17 04:32 [place] # 0.5 K/mm3 (0.0-0.8) 08/01/17 04:32 Eos # 0.1 K/mm3 (0.0-0.4) 08/01/17 04:32 Baso # 0.0 K/mm3 (0.0-0.1) 08/01/17 04:32 Seg Neutrophils % 59.8 % (40.0-70.0) 08/01/17 04:32 Seg Neutrophils # 4.7 K/mm3 (1.8-7.7) 08/01/17 04:32 Sodium 143 mmol/L (137-145) 08/01/17 04:32 Potassium 3.8 mmol/L (3.6-5.0) 08/01/17 04:32 Chloride 102.1 mmol/L (98-107) 08/01/17 04:32 Carbon Dioxide 31 mmol/L (22-30) H 08/01/17 04:32 Anion Gap 14 mmol/L 08/01/17 04:32 BUN 21 mg/dL (7-17) H 08/01/17 04:32 Creatinine 0.8 mg/dL (0.7-1.2) 08/01/17 04:32 Estimated GFR > 60 ml/min 08/01/17 04:32 BUN/Creatinine Ratio 26 % 08/01/17 04:32 Glucose 123 mg/dL (65-100) H 08/01/17 04:32 POC Glucose 152 (70-105) H 08/02/17 08:02 Hemoglobin A1c 13.3 % (4-6) H 07/30/17 08:26 Calcium 7.8 mg/dL (8.4-10.2) L 08/01/17 04:32 Troponin T < 0.010 ng/mL (0.00-0.029) 07/30/17 08:26 NT-Pro-B Natriuret Pep 3835 pg/mL (0-900) H 07/30/17 08:26 Triglycerides 98 mg/dL (2-149) 07/30/17 08:26 Cholesterol 183 mg/dL (50-199) 07/30/17 08:26 LDL Cholesterol Direct 116 mg/dL (50-130) 07/30/17 08:26 HDL Cholesterol 59 mg/dL (40-59) 07/30/17 08:26 Cholesterol/HDL Ratio 3.10 % 07/30/17 08:26 <FARHEEN GARDNER - Last Filed: 08/02/17 19:17> History Interval history: I saw and evaluated the patient. I agree with the findings and the plan of care as documented in the Nurse Practitioner's~note, with the following corrections and additions. Patient seen and examined medical records reviewed Agree with the above documentation and treatment plan Possible home health, home health nurse for disease monitoring Closely monitor blood sugars, adjust as needed Hospitalist Physical - Constitutional Vitals: Temp Pulse Resp BP Pulse Ox 97.8 F 78 18 158/86 96 08/02/17 12:42 08/02/17 12:42 08/02/17 12:42 08/02/17 12:42 08/02/17 12:42 Results - Labs CBC & Chem 7: 03/26/18 04:32 08/01/17 04:32 Labs: Laboratory Last Values WBC 7.8 K/mm3 (4.5-11.0) 08/01/17 04:32 RBC 3.99 M/mm3 (3.65-5.03) 08/01/17 04:32 Hgb 9.9 gm/dl (10.1-14.3) L 08/01/17 04:32 Hct 30.2 % (30.3-42.9) L 08/01/17 04:32 MCV 76 fl (79-97) L 08/01/17 04:32 MCH 25 pg (28-32) L 08/01/17 04:32 MCHC 33 % (30-34) 08/01/17 04:32 RDW 15.5 % (13.2-15.2) H 08/01/17 04:32 Plt Count 426 K/mm3 (140-440) 08/01/17 04:32 Lymph % (Auto) 31.6 % (13.4-35.0) 08/01/17 04:32 [place] % (Auto) 6.5 % (0.0-7.3) 08/01/17 04:32 Eos % (Auto) 1.5 % (0.0-4.3) 08/01/17 04:32 Baso % (Auto) 0.6 % (0.0-1.8) 08/01/17 04:32 Lymph # 2.5 K/mm3 (1.2-5.4) 08/01/17 04:32 [place] # 0.5 K/mm3 (0.0-0.8) 08/01/17 04:32 Eos # 0.1 K/mm3 (0.0-0.4) 08/01/17 04:32 Baso # 0.0 K/mm3 (0.0-0.1) 08/01/17 04:32 Seg Neutrophils % 59.8 % (40.0-70.0) 08/01/17 04:32 Seg Neutrophils # 4.7 K/mm3 (1.8-7.7) 08/01/17 04:32 Sodium 143 mmol/L (137-145) 08/01/17 04:32 Potassium 3.8 mmol/L (3.6-5.0) 08/01/17 04:32 Chloride 102.1 mmol/L (98-107) 08/01/17 04:32 Carbon Dioxide 31 mmol/L (22-30) H 08/01/17 04:32 Anion Gap 14 mmol/L 08/01/17 04:32 BUN 21 mg/dL (7-17) H 08/01/17 04:32 Creatinine 0.8 mg/dL (0.7-1.2) 08/01/17 04:32 Estimated GFR > 60 ml/min 08/01/17 04:32 BUN/Creatinine Ratio 26 % 08/01/17 04:32 Glucose 123 mg/dL (65-100) H 08/01/17 04:32 POC Glucose 233 (70-105) H 08/02/17 15:50 Hemoglobin A1c 13.3 % (4-6) H 07/30/17 08:26 Calcium 7.8 mg/dL (8.4-10.2) L 08/01/17 04:32 Troponin T < 0.010 ng/mL (0.00-0.029) 07/30/17 08:26 NT-Pro-B Natriuret Pep 3835 pg/mL (0-900) H 07/30/17 08:26 Triglycerides 98 mg/dL (2-149) 07/30/17 08:26 Cholesterol 183 mg/dL (50-199) 07/30/17 08:26 LDL Cholesterol Direct 116 mg/dL (50-130) 07/30/17 08:26 HDL Cholesterol 59 mg/dL (40-59) 07/30/17 08:26 Cholesterol/HDL Ratio 3.10 % 07/30/17 08:26
[2017-08-03] MEDS: LASIX IV SCH (05:40)
[2017-08-03] MEDS: HumuLIN R SUB-Q SCH ×2 (08:54→12:00)
[2017-08-03] MEDS ORDERED: ZESTRIL PO SCH (10:00)
[2017-08-03 10:16] VITALS: BP 143/81
[2017-08-03] MEDS: ZOLOFT PO SCH (10:27)
[2017-08-03] MEDS: PROCARDIA XL PO SCH (10:27)
[2017-08-03] MEDS: NEURONTIN PO SCH (10:27)
[2017-08-03] MEDS: HALFPRIN EC PO SCH (10:27)
[2017-08-03] MEDS: LANTUS SUB-Q SCH (10:28)
[2017-08-03] MEDS: LOPRESSOR PO SCH (10:28)
--- NOTE | 2017-08-03 12:34 | Discharge Summary ---
Providers - Providers Date of Admission: 07/30/17 20:19 Date of discharge: 08/03/17 Attending physician: FARHEEN GARDNER Primary care physician: HAIR BOILER Hospitalization Condition: Stable Hospital course: 62 YO Female with HTN, DM, [place], PUD, Nicotine Dependence, Medication Noncompliance presents to ED for shortness of breath for the past 1 month, with worsening symptoms over the past week Disposition: [id number] HOME UNDER HOME HL[facility] Time spent for discharge: 32 minutes Core Measure Documentation - Palliative Care Palliative Care/ Comfort Measures: Not Applicable - Core Measures Any of the following diagnoses?: none Exam - Constitutional Vitals: Temp Pulse Resp BP Pulse Ox 98.6 F 73 18 143/81 99 08/03/17 07:55 08/03/17 07:55 08/03/17 07:55 08/03/17 07:55 08/03/17 07:55 General appearance: Present: no acute distress, well-nourished - EENT Eyes: Present: PERRL ENT: hearing intact, clear oral mucosa - Neck Neck: Present: supple, normal ROM - Respiratory Respiratory effort: normal Respiratory: bilateral: CTA - Cardiovascular Heart Sounds: Present: S1 & S2. Absent: rub, click - Extremities Extremities: pulses symmetrical, No edema Peripheral Pulses: within normal limits - Abdominal General gastrointestinal: Present: soft, non-tender, non-distended, normal bowel sounds - Integumentary Integumentary: Present: clear, warm, dry - Musculoskeletal Musculoskeletal: gait normal, strength equal bilaterally - Psychiatric Psychiatric: appropriate mood/affect, intact judgment & insight - Neurologic Neurologic: CNII-XII intact, moves all extremities Plan Activity: fall precautions Weight Bearing Status: Weight Bear as Tolerated Diet: low fat, low cholesterol, low salt, diabetic Special Instructions: hold Metformin Follow up with: PRIMARY CARE, [Primary Care Provider] - 7 Days Prescriptions: Aspirin EC [Aspirin Enteric Coated TAB] 81 mg PO QDAY #30 tablet Insulin Glargine [Lantus VIAL] 16 units SUB-Q BID #1 vial Metoprolol [Lopressor TAB] 25 mg PO BID #60 tablet
== END 2017-08-03 16:10 | disposition home health service (06) | DRG 291 ==
LOC: ED 07:57 → 4A 20:19
PROVIDERS: ADMIT Internal Medicine; ATTEND Internal Medicine
DX: I11.0 Hypertensive heart disease with heart failure (principal); I50.23 Acute on chronic systolic (congestive) heart failure; J96.01 Acute respiratory failure with hypoxia; E87.2 Acidosis; F17.210 Nicotine dependence, cigarettes, uncomplicated; E11.649 Type 2 diabetes mellitus with hypoglycemia without coma; Z98.51 Tubal ligation status; Z79.899 Other long term (current) drug therapy; Z79.2 Long term (current) use of antibiotics; I25.2 Old myocardial infarction; Z87.11 Personal history of peptic ulcer disease; Z91.19 Patient's noncompliance with other medical treatment and regimen; Z83.6 Family history of other diseases of the respiratory system; Z88.8 Allergy status to other drugs, medicaments and biological substances; Z79.4 Long term (current) use of insulin
CPT/HCPCS: 36415; 71046; 71275; 80048; 80061; 82962; 83036; 83880; 84484; 85025; 87040; 93005; 93010; 93306; 94760; 96374; 96375; 96376; 99406; A9270-GY; J0360; J1815; J1940; Q9967

== ENCOUNTER 2017-09-07 22:12 | Emergency (ER) | payer SELFPAY ==
[2017-09-07] MEDS ORDERED: ASPIRIN PO ONE (22:59)
[2017-09-07] MEDS ORDERED: ZOFRAN ODT PO ONE (23:00)
[2017-09-07 23:23] LABS: Basophils # (Auto) 0.1 K/mm3 (0.0-0.1); Basophils % (Auto) 0.8 % (0.0-1.8); Eosinophils # (Auto) 0.2 K/mm3 (0.0-0.4); Eosinophils % (Auto) 2.1 % (0.0-4.3); Hematocrit 34.4 % (30.3-42.9); Lymphocytes # (Auto) 2.1 K/mm3 (1.2-5.4); Lymphocytes % (Auto) 27.3 % (13.4-35.0); Mean Corpuscular HGB Conc 32 % (30-34); Mean Corpuscular Volume 76 fl (79-97); Monocytes # (Auto) 0.5 K/mm3 (0.0-0.8); Monocytes % (Auto) 7.1 % (0.0-7.3); Platelet Count 311 K/mm3 (140-440); Red Blood Count 4.54 M/mm3 (3.65-5.03); Red Cell Distribution Width 17.1 % (13.2-15.2)
[2017-09-07 23:39] LABS: Mean Corpuscular Hemoglobin 24 pg (28-32)
[2017-09-07 23:41] LABS: BUN/Creatinine Ratio 24; Blood Urea Nitrogen 17 mg/dL (7-17); Calcium 8.9 mg/dL (8.4-10.2); Hemolysis Index 4
--- NOTE | 2017-09-08 04:15 | Emergency Department Report ---
<FRANCHESCA KOVACS - Last Filed: 09/08/17 04:42> ED Chest Pain HPI - General Chief Complaint: Chest Pain Stated Complaint: CHEST PAIN AND BACK PAIN Time Seen by Provider: 09/08/17 04:12 Source: patient Mode of arrival: Ambulatory Limitations: No Limitations - History of Present Illness Initial Comments: 8-year-old woman with past history of myocardial infarction, heart failure, diabetes mellitus and hypertension, presents with 4 days of vague but persistent chest pain, which is aching across the center of her chest, along with abdominal pain nausea and vomiting, with some moderate discomfort in both sides the middle back. Patient developed a gradually, is been present more or less continually, seems to be aggravated by movement, but she also feels that it started in the upper abdomen, and then spreads to the chest after that. She has no diaphoresis with it, no radiation to the arms, she has back discomfort, but it hurts when she moves. She has not had any fever chills or diaphoresis. Not relieved with any other [id number] medicines that she usually takes, and she has been out of her narcotic chronic pain medicine for over a month, which she normally takes for neuropathy. Onset/Timin -: Gradual, days(s) Onset: during rest Pain Location: substernal, left chest, right chest, epigastric Pain Radiation: back Severity scale (0 -10): 7 Quality: aching, squeezing, other ([place]) Consistency: constant, other (waxing and waning) Improves With: nothing Worsens With: inspiration, movement re: nausea. denies: vomting Other Symptoms: denies: cough, fever Treatments Prior to Arrival: none Aspirin use within the Past 7 Days: (1) Yes - Related Data On Oral Contraceptives: No Home Medications Medication Instructions Recorded Confirmed Last Taken Biotin 1,000 mcg PO DAILY 07/30/17 07/30/17 Unknown Gabapentin [Neurontin] 300 mg PO BID 07/30/17 07/30/17 07/30/17 Ibuprofen [Motrin 600 MG tab] 600 mg PO BID PRN 07/30/17 07/30/17 Unknown Lisinopril [Zestril] 20 mg PO DAILY 07/30/17 07/30/17 07/30/17 Multivitamin Tab W-MINERAL 1 tab PO DAILY 07/30/17 07/30/17 Unknown [Multiple Vitamin/Mineral (Theragran M)] NIFEdipine [Procardia Xl] 60 mg PO DAILY 07/30/17 07/30/17 Unknown Sertraline [Zoloft] 50 mg PO QDAY 07/30/17 07/30/17 Unknown Simvastatin [Zocor TAB] 20 mg PO QHS 07/30/17 07/30/17 07/29/17 Previous Rx's Medication Instructions Recorded Last Taken Type Albuterol Sulfate [Proventil Hfa] 2 puff IH Q4H PRN #1 hfa.aer.ad 08/03/17 Unknown Rx Aspirin EC [Aspirin Enteric Coated 81 mg PO QDAY #30 tablet 08/03/17 Unknown Rx TAB] Insulin Glargine [Lantus VIAL] 16 units SUB-Q BID #1 vial 08/03/17 Unknown Rx Lisinopril [Zestril TAB] 20 mg PO QDAY tablet 08/03/17 Unknown Rx Metoprolol [Lopressor TAB] 25 mg PO BID #60 tablet 08/03/17 Unknown Rx Allergies Allergy/AdvReac Type Severity Reaction Status Date / Time No Known Allergies Allergy Unverified 07/30/17 23:27 Heart Score - HEART Score History: Slightly suspicious Age: 45-65 Risk factors: > 3 risk factors or hx of atherosclerotic disease Troponin: < normal limit ED Review of Systems ROS: Stated complaint: CHEST PAIN AND BACK PAIN Other details as noted in HPI Comment: All other systems reviewed and negative Constitutional: denies: chills, diaphoresis, fever, malaise ENT: denies: ear pain, throat pain Respiratory: denies: cough, shortness of breath, wheezing Cardiovascular: chest pain, dyspnea on exertion, edema (mild ankle swelling). denies: palpitations Endocrine: no symptoms reported Gastrointestinal: abdominal pain Genitourinary: as per HPI Musculoskeletal: back pain (mid back pain, bilateral) Skin: denies: rash, lesions Neurological: denies: headache, weakness, paresthesias Psychiatric: denies: anxiety, depression Hematological/Lymphatic: denies: easy bleeding, easy bruising ED Past Medical Hx - Past Medical History Previous Medical History?: Yes Hx Hypertension: Yes Hx Heart Attack/AMI: Yes Hx Congestive Heart Failure: Yes Hx Diabetes: Yes Additional medical history: ulcers? - Surgical History Past Surgical History?: Yes Additional Surgical History: tubal ligation - Social History Smoking Status: Light Tobacco Smoker Substance Use Type: None - Medications Home Medications: Home Medications Medication Instructions Recorded Confirmed Last Taken Type Biotin 1,000 mcg PO DAILY 07/30/17 07/30/17 Unknown History Gabapentin [Neurontin] 300 mg PO BID 07/30/17 07/30/17 07/30/17 History Ibuprofen [Motrin 600 MG tab] 600 mg PO BID PRN 07/30/17 07/30/17 Unknown History Lisinopril [Zestril] 20 mg PO DAILY 07/30/17 07/30/17 07/30/17 History Multivitamin Tab W-MINERAL 1 tab PO DAILY 07/30/17 07/30/17 Unknown History [Multiple Vitamin/Mineral (Theragran M)] NIFEdipine [Procardia Xl] 60 mg PO DAILY 07/30/17 07/30/17 Unknown History Sertraline [Zoloft] 50 mg PO QDAY 07/30/17 07/30/17 Unknown History Simvastatin [Zocor TAB] 20 mg PO QHS 07/30/17 07/30/17 07/29/17 History Albuterol Sulfate [Proventil Hfa] 2 puff IH Q4H PRN #1 hfa.aer.ad 08/03/17 Unknown Rx Aspirin EC [Aspirin Enteric Coated 81 mg PO QDAY #30 tablet 08/03/17 Unknown Rx TAB] Insulin Glargine [Lantus VIAL] 16 units SUB-Q BID #1 vial 08/03/17 Unknown Rx Lisinopril [Zestril TAB] 20 mg PO QDAY tablet 08/03/17 Unknown Rx Metoprolol [Lopressor TAB] 25 mg PO BID #60 tablet 08/03/17 Unknown Rx ED Physical Exam - General Limitations: No Limitations General appearance: in no apparent distress (sleeping at time of examination) - Head Head exam: Present: atraumatic - Eye Eye exam: Present: normal appearance - ENT ENT exam: Present: normal exam - Neck Neck exam: Present: normal inspection - Respiratory Respiratory exam: Present: normal lung sounds bilaterally - Cardiovascular Cardiovascular Exam: Present: regular rate - GI/Abdominal GI/Abdominal exam: Present: soft, tenderness (epigastrium), normal bowel sounds. Absent: guarding, rebound, rigid - Rectal Rectal exam: Present: deferred - Extremities Exam Extremities exam: Present: normal inspection - Back Exam Back exam: Present: tenderness (mid back, bilaterally, soft tissue), paraspinal tenderness. Absent: CVA tenderness (R), CVA tenderness (L), vertebral tenderness - Neurological Exam Neurological exam: Present: alert, oriented X3 - Psychiatric Psychiatric exam: Present: normal affect, normal mood - Skin Skin exam: Present: warm, dry, intact, normal color. Absent: rash ED Course Vital Signs 09/07/17 09/07/17 09/08/17 22:12 22:52 02:44 Temperature 98.5 F 98.5 F Pulse Rate 95 H 95 H 90 Respiratory 20 20 22 Rate Blood Pressure 158/90 158/90 O2 Sat by Pulse 98 98 96 Oximetry 09/08/17 09/08/17 09/08/17 02:46 03:00 03:16 Temperature Pulse Rate 91 H 94 H 94 H Respiratory 19 21 21 Rate Blood Pressure 174/87 156/74 156/74 O2 Sat by Pulse 95 95 96 Oximetry 09/08/17 09/08/17 09/08/17 03:30 03:31 03:46 Temperature Pulse Rate 95 H 91 H Respiratory 17 20 19 Rate Blood Pressure 157/75 157/75 O2 Sat by Pulse 97 98 94 Oximetry 09/08/17 09/08/17 09/08/17 04:00 05:36 05:46 Temperature Pulse Rate 91 H 94 H 91 H Respiratory 21 18 11 L Rate Blood Pressure 171/93 142/76 142/76 O2 Sat by Pulse 94 94 96 Oximetry 09/08/17 09/08/17 09/08/17 06:00 06:16 06:30 Temperature Pulse Rate 97 H 91 H 87 Respiratory 14 18 17 Rate Blood Pressure 142/76 171/93 171/93 O2 Sat by Pulse 94 89 90 Oximetry 09/08/17 09/08/17 09/08/17 06:46 06:59 07:00 Temperature Pulse Rate 87 89 Respiratory 19 18 19 Rate Blood Pressure 171/93 171/93 O2 Sat by Pulse 90 97 91 Oximetry 09/08/17 09/08/17 09/08/17 07:16 07:30 07:46 Temperature Pulse Rate 91 H 85 84 Respiratory 21 16 17 Rate Blood Pressure 171/93 171/93 171/93 O2 Sat by Pulse 93 91 88 Oximetry 09/08/17 09/08/17 09/08/17 08:00 08:16 08:30 Temperature Pulse Rate 87 89 85 Respiratory 16 21 19 Rate Blood Pressure 130/66 130/66 143/79 O2 Sat by Pulse 91 93 90 Oximetry 09/08/17 09/08/17 09/08/17 08:46 09:00 09:16 Temperature Pulse Rate 85 86 82 Respiratory 21 19 20 Rate Blood Pressure 137/76 135/78 135/78 O2 Sat by Pulse 90 95 93 Oximetry 09/08/17 09:30 Temperature Pulse Rate 84 Respiratory 18 Rate Blood Pressure 147/79 O2 Sat by Pulse 94 Oximetry ED Medical Decision Making - Lab Data Result diagrams: 09/07/17 23:04 09/07/17 23:04 - EKG Data -: EKG Interpreted by Mo EKG shows normal: sinus rhythm, QRS complexes (LVH by voltage criteria, precordial leads), ST-T waves (nonspecific ST changes, less than 1 mm elevation , no significant changes) Rate: normal - EKG Data When compared to previous EKG there are: no significant change Interpretation: no acute changes, LVH Critical care attestation.: If time is entered above; I have spent that time in minutes in the direct care of this critically ill patient, excluding procedure time. ED Disposition Clinical Impression: Chest pain Qualifiers: Chest pain type: unspecified Qualified Code(s): R07.9 - Chest pain, unspecified HTN (hypertension) Qualifiers: Hypertension type: essential hypertension Qualified Code(s): I10 - Essential ( primary) hypertension Disposition: OP ADMIT IP TO THIS HOSP Condition: Stable Instructions: Chest Pain (ED), Hypertension (ED) Referrals: EZIO THAPA MD [Primary Care Provider] - 3-5 Days <PRISCILLA ROSARIO - Last Filed: 09/08/17 12:27> Heart Score - HEART Score EKG: Non-specific MO score - Mo Score Age > 65: (0) No Aspirin use within the Past 7 Days: (0) No 3 or more CAD Risk Factors: (1) Yes 2 or more Angina events in past 24 hrs: (1) Yes Known CAD with more than 50% Stenosis: (0) No Elevated Cardiac Markers: (0) No ST Deviation Greater than 0.5mm: (0) No MO Score: 2 ED Medical Decision Making - Lab Data Result diagrams: 09/07/17 23:04 09/07/17 23:04 - Medical Decision Making Patient's d-dimer was slightly elevated and the patient was sent for CT of the chest. This is negative for PE. Patient was continuing to have chest discomfort therefore she will be admitted to the hospitalist service under Dr. Kearney for further management. ED Disposition Is pt being admited?: Yes Does the pt Need Aspirin: No
--- NOTE | 2017-09-08 04:36 | XRay Report ---
FINAL REPORT EXAM: XR CHEST 1V AP HISTORY: chest pain TECHNIQUE: AP portable view(s) of the chest obtained. PRIORS: None. FINDINGS: No mediastinal shift. Cardiac silhouette is not enlarged. No pneumothorax, effusion, or focal pulmonary opacity identified. No acute skeletal findings. IMPRESSION: No acute pulmonary finding identified.
[2017-09-08] MEDS ORDERED: NORCO 7.5/325 PO ONE (05:12)
[2017-09-08] MEDS ORDERED: ZOFRAN ODT PO ONE (05:13)
[2017-09-08] MEDS ORDERED: NORCO 5/325 PO ONE (09:19)
--- NOTE | 2017-09-08 10:36 | Cat Scan Report ---
CTA chest: History: Chest pain, elevated d-dimer. Findings: No evidence of aortic aneurysm or pulmonary embolism. No endobronchial or mediastinal mass or adenopathy. No pleural or pericardial effusion. There is linear ill-defined density noted right lower lobe probably discoid atelectasis or an infiltrate. Pleural thickening bilaterally be more pronounced in the right upper lobe. Impression: No evidence of pulmonary embolism. Right basilar infiltrate/discoid atelectasis.
--- NOTE | 2017-09-08 11:34 | History and Physical Report ---
History of Present Illness Chief complaint: chest pain History of present illness: 62 YO Female with ND, CHF, DM, HTN, medication noncompliace, dietary noncompliance presents to ED for evaluation of atypical chest pain. Pt seen and evaluated in ED and underwent cardiac workup. D dimer elevated, but CTA chest negative for PE. Serial cardiac enzymes, ekg, and telemetry not indicative of acute ND. Pt medically optimized and back to usual state of health. Pt discharged home and instructed to f/u pcp 1wk, and cardiology 1 wk for stress test. Past History Past Medical History: acute ND, diabetes, heart failure, hypertension Past Surgical History: Other (tubal ligation) Social history: , smoking Family history: diabetes, hypertension Medications and Allergies Allergies Allergy/AdvReac Type Severity Reaction Status Date / Time No Known Allergies Allergy Unverified 07/30/17 23:27 Home Medications Medication Instructions Recorded Confirmed Last Taken Type Biotin 1,000 mcg PO DAILY 07/30/17 09/08/17 Unknown History Gabapentin [Neurontin] 300 mg PO BID 07/30/17 09/08/17 07/30/17 History Ibuprofen [Motrin 600 MG tab] 600 mg PO BID PRN 07/30/17 09/08/17 Unknown History Lisinopril [Zestril] 20 mg PO DAILY 07/30/17 09/08/17 07/30/17 History Multivitamin Tab W-MINERAL 1 tab PO DAILY 07/30/17 09/08/17 Unknown History [Multiple Vitamin/Mineral (Theragran M)] NIFEdipine [Procardia Xl] 60 mg PO DAILY 07/30/17 09/08/17 Unknown History Sertraline [Zoloft] 50 mg PO QDAY 07/30/17 09/08/17 Unknown History Simvastatin [Zocor TAB] 20 mg PO QHS 07/30/17 09/08/17 07/29/17 History Albuterol Sulfate [Proventil Hfa] 2 puff IH Q4H PRN #1 hfa.aer.ad 08/03/1709/08 Unknown Rx Aspirin EC [Aspirin Enteric Coated 81 mg PO QDAY #30 tablet 08/03/17 09/08/17 Unknown Rx TAB] Insulin Glargine [Lantus VIAL] 16 units SUB-Q BID #1 vial 08/03/17 09/08/17 Unknown Rx Metoprolol [Lopressor TAB] 25 mg PO BID #60 tablet 08/03/17 09/08/17 Unknown Rx Pantoprazole [Protonix] 40 mg PO BID #60 tablet 09/08/17 Unknown Rx Review of Systems Constitutional: no weight loss, no weight gain, no fever, no chills Ears, nose, mouth and throat: no ear pain, no ear discharge, no tinnitis, no decreased hearing, no nose pain, no nasal congestion, no nasal discharge Cardiovascular: chest pain, no orthopnea, no dyspnea on exertion, no paroxysmal nocturnal dyspnea, no claudication, no phlebitis Respiratory: no cough, no cough with sputum, no excessive sputum, no hemoptysis , no shortness of breath Gastrointestinal: no abdominal pain, no nausea, no vomiting, no constipation, no change in bowel habits Genitourinary Female: no dysmenorrhea, no flank pain, no menorrhagia, no urinary frequency Rectal: no pain, no incontinence, no bleeding Musculoskeletal: no neck stiffness, no neck pain, no low back pain, no leg numbness/tingling Integumentary: no rash, no pruritis, no redness, no sores, no wounds Neurological: no head injury, no transient paralysis, no weakness, no parathesias, no tingling, no seizures, no syncope Psychiatric: no anxiety, no memory loss Endocrine: no cold intolerance, no heat intolerance, no polyphagia, no excessive thirst Hematologic/Lymphatic: no easy bruising, no easy bleeding, no lymphadenopathy, no lymphedema Allergic/Immunologic: no urticaria, no allergic rhinitis, no persistent infections Exam - Constitutional Vitals: Temp Pulse Resp BP Pulse Ox 98.5 F 84 18 147/79 94 09/07/17 22:52 09/08/17 09:30 09/08/17 09:30 09/08/17 09:30 09/08/17 09:30 General appearance: Present: no acute distress, well-nourished - EENT Eyes: Present: PERRL ENT: hearing intact, clear oral mucosa - Neck Neck: Present: supple, normal ROM - Respiratory Respiratory effort: normal Respiratory: bilateral: CTA - Cardiovascular Heart Sounds: Present: S1 & S2. Absent: rub, click - Extremities Extremities: pulses symmetrical, No edema Peripheral Pulses: within normal limits - Abdominal General gastrointestinal: Present: soft, non-tender, non-distended, normal bowel sounds Female genitourinary: Present: normal - Integumentary Integumentary: Present: clear, warm, dry - Musculoskeletal Musculoskeletal: gait normal, strength equal bilaterally - Psychiatric Psychiatric: appropriate mood/affect, intact judgment & insight - Neurologic Neurologic: CNII-XII intact, moves all extremities Results - Labs CBC & Chem 7: 09/07/17 23:04 09/07/17 23:04 Labs: Abnormal lab results 09/07/17 09/07/17 09/08/17 Range/Units 23:04 23:04 04:50 MCV 76 L (79-97) fl MCH 24 L (28-32) pg RDW 17.1 H (13.2-15.2) % D-Dimer 487.90 H (0-234) ng/mlDDU Glucose 216 H (65-100) mg/dL NT-Pro-B Natriuret Pep (0-900) pg/mL 09/08/17 Range/Units 04:50 MCV (79-97) fl MCH (28-32) pg RDW (13.2-15.2) % D-Dimer (0-234) ng/mlDDU Glucose (65-100) mg/dL NT-Pro-B Natriuret Pep 1421 H (0-900) pg/mL Assessment and Plan - Patient Problems (1) Atypical chest pain Status: Acute Plan to address problem: Cardiac workup negative, pt counseled regarding medication noncompliance. F/u PCP wk, outpatient cardiology f/u (2) GERD (gastroesophageal reflux disease) Status: Acute Qualifiers: Esophagitis presence: without esophagitis Qualified Code(s): K21.9 - Gastro -esophageal reflux disease without esophagitis Plan to address problem: PPI therapy, outpatient GI follow up prn
[2017-09-08] MEDS ORDERED: IMDUR PO SCH (11:37)
[2017-09-08 15:39] VITALS: BP 137/78
[2017-09-08] MEDS ORDERED: PROTONIX PO SCH (16:00)
== END 2017-09-08 15:50 | disposition admitted as inpatient to this hospital (09) ==
LOC: ED 22:12 → UNDOADMIN 09-08 12:27 → 4A 09-08 12:27 → ED 09-08 15:50
DX: I11.0 Hypertensive heart disease with heart failure (principal); I50.9 Heart failure, unspecified; R10.13 Epigastric pain; M54.6 Pain in thoracic spine; R11.2 Nausea with vomiting, unspecified; I25.2 Old myocardial infarction; E11.9 Type 2 diabetes mellitus without complications; F17.200 Nicotine dependence, unspecified, uncomplicated; Z98.51 Tubal ligation status; Z79.4 Long term (current) use of insulin
CPT/HCPCS: 36415; 71045; 71275; 80048; 83880; 84484; 85025; 85379; 93005; 93010; 99285; Q9967; Q0162

== ENCOUNTER 2017-11-21 22:52 | Emergency (ER) | payer SELFPAY ==
[2017-11-21] MEDS ORDERED: MORPHINE IV ONE (23:36)
[2017-11-21] MEDS ORDERED: BENADRYL IV ONE (23:36)
[2017-11-21] MEDS ORDERED: NACL 0.9% 500 ML 500 ML IV ONE (23:36)
--- NOTE | 2017-11-22 00:29 | Cat Scan Report ---
FINAL REPORT EXAM: CT HEAD/BRAIN WO CON HISTORY: headache TECHNIQUE: Routine axial imaging was obtained of the brain without IV contrast. FINDINGS: There is age related atrophy. There is slightly diminished attenuation of the periventricular white matter compatible chronic microvascular disease changes. There is a low-attenuation area in the posterior aspect of the right frontal lobe seen on the most cephalad images. This may represent a remote infarct. There are no extra-axial fluid collections. The ventricular system is appropriate in size and is symmetric. The visualized sinuses are clear. The mastoid air cells are well pneumatized. IMPRESSION: Age related atrophy with chronic ischemic white matter disease changes. No definite evidence of acute stroke or hemorrhage otherwise. Low-attenuation area in the posterior aspect of the right frontal lobe possibly representing a remote infarct. MRI of the brain is recommended for better overall valuation.
--- NOTE | 2017-11-22 00:30 | Emergency Department Report ---
HPI - General Chief Complaint: Headache Time Seen by Provider: 11/21/17 23:07 - HPI HPI: The patient is a 62-year-old female whom presents for evaluation of headache. The patient reports 1 week of on and off headache, stabbing in quality, exacerbated by bright lights, currently 10/10 in severity. The patient denies fever, head injury, neck pain, neck stiffness, chest pain, dyspnea, abdominal pain, vision or hearing changes, smell or taste changes, paresthesias, facial drooping, slurred speech, seizure-like activity, urine or bowel incontinence or retention, or other focal neurological deficit. ED Past Medical Hx - Past Medical History Previous Medical History?: Yes Hx Hypertension: Yes Hx Heart Attack/AMI: Yes Hx Congestive Heart Failure: Yes Hx Diabetes: Yes Hx GERD: Yes Additional medical history: ulcers? - Surgical History Past Surgical History?: Yes Additional Surgical History: tubal ligation - Social History Smoking Status: Current Every Day Smoker Substance Use Type: None - Medications Home Medications: Home Medications Medication Instructions Recorded Confirmed Last Taken Type Biotin 1,000 mcg PO DAILY 07/30/17 09/08/17 Unknown History Gabapentin [Neurontin] 300 mg PO BID 07/30/17 09/08/17 07/30/17 History Ibuprofen [Motrin 600 MG tab] 600 mg PO BID PRN 07/30/17 09/08/17 Unknown History Lisinopril [Zestril] 20 mg PO DAILY 07/30/17 09/08/17 07/30/17 History Multivitamin Tab W-MINERAL 1 tab PO DAILY 07/30/17 09/08/17 Unknown History [Multiple Vitamin/Mineral (Theragran M)] NIFEdipine [Procardia Xl] 60 mg PO DAILY 07/30/17 09/08/17 Unknown History Sertraline [Zoloft] 50 mg PO QDAY 07/30/17 09/08/17 Unknown History Simvastatin [Zocor TAB] 20 mg PO QHS 07/30/17 09/08/17 07/29/17 History Albuterol Sulfate [Proventil Hfa] 2 puff IH Q4H PRN #1 hfa.aer.ad 08/03/1709/08 Unknown Rx Aspirin EC [Aspirin Enteric Coated 81 mg PO QDAY #30 tablet 08/03/17 09/08/17 Unknown Rx TAB] Insulin Glargine [Lantus VIAL] 16 units SUB-Q BID #1 vial 08/03/17 09/08/17 Unknown Rx Metoprolol [Lopressor TAB] 25 mg PO BID #60 tablet 08/03/17 09/08/17 Unknown Rx Pantoprazole [Protonix] 40 mg PO BID #60 tablet 09/08/17 Unknown Rx Butalb/Acetaminophen/Caffeine 1 - 2 cap PO Q6HR PRN #12 cap 11/22/17 Unknown Rx [Fioricet 50-300-40 mg CAP] ED Review of Systems ROS: Stated complaint: HEADACHE Other details as noted in HPI Constitutional: denies: fever ENT: denies: throat or neck pain Respiratory: denies: cough, shortness of breath Cardiovascular: denies: chest pain Endocrine: denies unexplained weight loss or gain Gastrointestinal: denies: abdominal pain, nausea Genitourinary: denies: dysuria Musculoskeletal: denies: leg swelling Skin: denies: rash Neurological: reports: headache Hematological/Lymphatic: denies: easy bleeding or easy bruising Psych: denies sadness or hopelessness Physical Exam - Physical Exam Vital Signs: Vital Signs 11/21/17 11/21/17 23:36 23:41 Temperature 98.6 F Pulse Rate 93 H Respiratory 18 18 Rate Blood Pressure 166/82 O2 Sat by Pulse 96 96 Oximetry Physical Exam: General: well-nourished, well-developed, no acute distress Head: Normocephalic, atraumatic Eyes: normal sclera ENT: Mucous membranes are pale and dry Neck: No neck stiffness, no cervical adenopathy Respiratory: Breath sounds equal bilaterally, no wheezing, rales, or rhonchi Cardio: S1 and S2 present, no murmurs, rubs, gallops, capillary refill is delayed Abdomen: Normoactive bowel sounds, soft abdomen, no rigidity, no guarding or rebound tenderness Chest WALL/Back: No tenderness to palpation of the chest wall, no CVA tenderness with percussion Musc: No pitting edema Skin: No rash Neuro: alert oriented x4, normal cognition, speech normal, PERRL, EOM intact, no facial drooping, no uvula or tongue deviation on protrusion, no deficit with rotation of neck or shoulder shrug, no obvious gross motor deficit in the upper or lower extremities with flexion or extension at the shoulder, elbow, wrist, hip, knee, or ankle bilaterally, no obvious gross sensation deficit to crude touch or 2 pt discrimination, 2+ symmetric reflexes on DTR testing, no coordination deficit with [id number] or [id number] testing, Babinski downgoing, romberg negative, patient able to to ambulate without abnormal gait Psych: Normal affect ED Course Vital Signs 11/21/17 11/21/17 23:36 23:41 Temperature 98.6 F Pulse Rate 93 H Respiratory 18 18 Rate Blood Pressure 166/82 O2 Sat by Pulse 96 96 Oximetry ED Medical Decision Making - Medical Decision Making The patient was seen and examined by myself. The patient is placed on a media monitor and continuous pulse ox. IV access is established and the patient is given normal saline fluid bolus for treatment of dehydration, and IV Benadryl, and IV morphine for her headache. CT scan the head is negative for acute intracranial disease process. The patient was reevaluated and reported that their symptoms were markedly improved. The patient is stable for discharge with outpatient follow-up. The patient is given follow-up and return instructions. The patient expressed understanding and agreed with the plan. The patient is discharged in stable condition. Critical care attestation.: If time is entered above; I have spent that time in minutes in the direct care of this critically ill patient, excluding procedure time. ED Disposition Clinical Impression: Acute non intractable tension-type headache, Dehydration Disposition: -01 TO HOME OR SELFCARE Is pt being admited?: No Does the pt Need Aspirin: No Condition: Stable Instructions: Migraine Headache (ED), Tension Headache (ED) Referrals: [facility] [Outside] - 3-5 Days Time of Disposition: 00:22
[2017-11-22 01:12] VITALS: BP 182/95
== END 2017-11-22 01:42 | disposition home or self-care (01) ==
LOC: ED 22:52
DX: G44.209 Tension-type headache, unspecified, not intractable (principal); E86.0 Dehydration; I11.0 Hypertensive heart disease with heart failure; I25.2 Old myocardial infarction; E11.9 Type 2 diabetes mellitus without complications; I50.9 Heart failure, unspecified; K21.9 Gastro-esophageal reflux disease without esophagitis; F17.200 Nicotine dependence, unspecified, uncomplicated; Z98.51 Tubal ligation status; Z79.4 Long term (current) use of insulin; Z79.899 Other long term (current) drug therapy
CPT/HCPCS: 70450; 96365; 96375; 99284; J1200; J2270; 96374